=== PATIENT | female | born 1990 | race Caucasian/White ===

== ENCOUNTER 2019-02-01 18:52 | Inpatient (IN) | payer BC ==
[~2019-02-01] VITALS: Ht 157.5 cm; Wt 91.4 kg
[2019-02-01] MEDS ORDERED: LACTATED RINGER'S 1,000 ML IV PRN (19:35)
[2019-02-01 20:00] VITALS: Ht 157.5 cm; Wt 91.4 kg
[2019-02-01] MEDS ORDERED: IBUPROFEN 600 MG TAB PO PRN (20:00)
[2019-02-01] MEDS ORDERED: METHYLERGONOVINE 0.2 MG INJ IM PRN (20:00)
[2019-02-01] MEDS ORDERED: LIDOCAINE 1% (MPF) 30 ML INJ INJ PRN (20:00)
[2019-02-01] MEDS ORDERED: OXYTOCIN 30 UNITS/LR 500 ML IV SCH ×3 (20:00)
[2019-02-01] MEDS ORDERED: OXYTOCIN 30 UNITS/LR 500 ML IV PRN (20:00)
[2019-02-01] MEDS ORDERED: MISOPROSTOL 200 MCG TAB PR PRN (20:00)
[2019-02-01] MEDS ORDERED: BUTORPHANOL 2 MG INJ IV PRN (20:00)
[2019-02-01] MEDS ORDERED: CARBOPROST 250 MCG INJ IM PRN (20:00)
[2019-02-01] MEDS: LACTATED RINGER'S 1,000 ML IV SCH ×2 (20:54→21:48)
[2019-02-02] MEDS ORDERED: LACTATED RINGER'S 1,000 ML IV* SCH (06:08)
[2019-02-02] MEDS: LACTATED RINGER'S 1,000 ML IV* SCH ×2 (06:14→14:14)
[2019-02-02] MEDS ORDERED: OXYTOCIN 30 UNITS/LR 500 ML IV SCH (06:14)
[2019-02-02 06:30] VITALS: BP 125/71; PULSE 72; RESP 18
[2019-02-02] MEDS ORDERED: ONDANSETRON 4 MG INJ IV PRN ×2 (06:30)
[2019-02-02] MEDS ORDERED: ACETAMINOPHEN 325 MG TAB PO PRN ×2 (06:30)
[2019-02-02] MEDS ORDERED: OXYTOCIN 30 UNITS/LR 500 ML IV PRN ×2 (06:30)
[2019-02-02] MEDS ORDERED: DIPHENHYDRAMINE 25 MG CAP PO PRN ×2 (06:30)
[2019-02-02] MEDS ORDERED: MISOPROSTOL 200 MCG TAB PR PRN ×2 (06:30)
[2019-02-02] MEDS ORDERED: MAGNESIUM HYDROXIDE 30ML CUP PO PRN ×2 (06:30)
[2019-02-02] MEDS ORDERED: BENZOCAINE 20% 56 ML SPRAY TOP PRN ×2 (06:30)
[2019-02-02] MEDS ORDERED: CEFAZOLIN 1 GM/50 ML (PMX) 50 ML IVPB ONE (06:30)
[2019-02-02] MEDS ORDERED: NA PHOSPHATE/BIPHOS 133 ML ENEMA PR PRN ×2 (06:30)
[2019-02-02] MEDS ORDERED: ZOLPIDEM 5 MG TAB PO PRN ×2 (06:30)
[2019-02-02] MEDS ORDERED: METHYLERGONOVINE 0.2 MG TAB PO PRN ×2 (06:30)
[2019-02-02] MEDS ORDERED: HYDROCODONE/APAP (5/325) TAB PO PRN ×3 (06:30)
[2019-02-02] MEDS ORDERED: WITCH HAZEL/GLYCERIN PAD PR PRN ×2 (06:30)
[2019-02-02] MEDS ORDERED: CARBOPROST 250 MCG INJ IM PRN ×2 (06:30)
[2019-02-02] MEDS ORDERED: METHYLERGONOVINE 0.2 MG INJ IM PRN ×2 (06:30)
[2019-02-02] MEDS ORDERED: LANOLIN HPA 1 PKT TOP PRN ×2 (06:30)
[2019-02-02 08:00] VITALS: BP 118/82; PULSE 74; RESP 18
[2019-02-02] MEDS ORDERED: SENNA/DOCUSATE NA (8.6MG/50MG) TAB PO SCH (09:00)
[2019-02-02] MEDS: IBUPROFEN 600 MG TAB PO PRN ×3 (11:25→23:43)
[2019-02-02] MEDS: SENNA/DOCUSATE NA (8.6MG/50MG) TAB PO SCH ×2 (11:25→21:45)
[2019-02-02] MEDS ORDERED: IBUPROFEN 600 MG TAB PO SCH (12:00)
[2019-02-02] MEDS ORDERED: AMPICILLIN 2 GM/NS (PMX) 100 ML IV SCH (12:00)
[2019-02-02 16:00] VITALS: BP 103/66; PULSE 86; RESP 18
[2019-02-02 19:35] VITALS: BP 108/66; PULSE 88; RESP 18
[2019-02-03 04:30] VITALS: BP 124/71; PULSE 80; RESP 18
[2019-02-03] MEDS: IBUPROFEN 600 MG TAB PO PRN ×3 (05:39→23:33)
[2019-02-03 08:30] VITALS: BP 101/63; PULSE 70; RESP 18
[2019-02-03] MEDS: SENNA/DOCUSATE NA (8.6MG/50MG) TAB PO SCH ×2 (09:41→21:00)
[2019-02-03 15:45] VITALS: BP 111/64; PULSE 82; RESP 20
--- NOTE | 2019-02-03 15:49 | PN ---
Date/Time of Note Date/Time of Note DATE: 02/03/19 TIME: 15:48 Assessment/Plan VTE Prophylaxis Risk score (from Ns)>0 risk: 1 SCD applied (from Ns): No SCD contraindicated: low risk/ambulating Pharmacological prophylaxis: NA/contraindicated Pharm contraindication: low risk/ambulating Lines/Catheters IV C[facility]ter Type (from [facility] Peripheral IV Assessment/Plan Assessment/Plan POST DAY 1 HOME TOMORROW RETURN TO CLINIC IN 2 WEEKS CONTINUE WITH VITAMINS OD AND FERROUS SULFATE PO TID DIET ADVISED COUNSELED INSTRUCTED CALL OFFICE IF THERE IS ANY PROBLEMS OR CONCERN Result Diagram: 02/03/19 1311 Results 24hrs Laboratory Tests Test 02/03/19 06:25 02/03/19 08:13 02/03/19 13:11 Lab Scanned Report REFERENCE LAB White Blood Count 8.7 9.5 Red Blood Count 3.78 L 3.95 L Hemoglobin 11.2 L 11.7 L Hematocrit 34.2 L 35.8 L Mean Corpuscular Volume 90.5 90.6 Mean Corpuscular Hemoglobin 29.6 29.6 Mean Corpuscular 32.7 32.7 Hemoglobin Concent Red Cell Distribution Width 14.9 H 14.9 H Platelet Count 173 191 Mean Platelet Volume 11.1 H 10.5 H Immature Granulocytes % 0.800 H 1.100 H Neutrophils % 75.5 79.6 H Lymphocytes % 16.2 12.8 L Monocytes % 6.4 5.5 Eosinophils % 0.8 0.7 Basophils % 0.3 0.3 Nucleated Red Blood Cells % 0.0 0.0 Immature Granulocytes # 0.070 H 0.100 H Neutrophils # 6.6 7.6 H Lymphocytes # 1.4 1.2 Monocytes # 0.6 0.5 Eosinophils # 0.1 0.1 Basophils # 0.0 0.0 Nucleated Red Blood Cells # 0.0 0.0 Subjective 24 Hr Interval Summary Free Text/Dictation FEELS GOOD, GOOD URINE OUTPUT, GOOD BOWEL MOVEMENT Exam/Review of Systems Exam Vitals Vital Signs Date Temp Pulse Resp B/P (MAP) Pulse Ox O2 O2 Flow FiO2 Time Delivery Rate 02/03/19 99.3 70 18 101/63 Room Air 08:30 (76) Intake and Output 02/02/19 02/02/19 02/03/19 1515:00 23:00 07:00 IntakeIntake Total 500 ml OutputOutput Total 600 ml BalanceBalance -100 ml Exam VITAL SIGNS STABLE: YES AFEBRILE: YES BREAST NOT ENGORGED, NON-TENDER, NO APPRECIABLE MASS: YES LUNGS CLEAR, NO RALES, WHEEZES, RHONCHI: YES SINUS RHYTHM WITHOUT MURMUR: YES ABDOMEN: NON-TENDER FUNDUS: BELOW UMBILICUS BOWEL SOUNDS: PRESENT UTERUS: FIRM INTACT PERINEUM: YES LOCHIA: LIGHT DEEP TENDON REFLEXES: 0 EXTREMITIES: NO CALF TENDERNESS EDEMA SCALE: NONE Results Results 24hrs Laboratory Tests Test 02/03/19 06:25 02/03/19 08:13 02/03/19 13:11 Lab Scanned Report REFERENCE LAB White Blood Count 8.7 9.5 Red Blood Count 3.78 L 3.95 L Hemoglobin 11.2 L 11.7 L Hematocrit 34.2 L 35.8 L Mean Corpuscular Volume 90.5 90.6 Mean Corpuscular Hemoglobin 29.6 29.6 Mean Corpuscular 32.7 32.7 Hemoglobin Concent Red Cell Distribution Width 14.9 H 14.9 H Platelet Count 173 191 Mean Platelet Volume 11.1 H 10.5 H Immature Granulocytes % 0.800 H 1.100 H Neutrophils % 75.5 79.6 H Lymphocytes % 16.2 12.8 L Monocytes % 6.4 5.5 Eosinophils % 0.8 0.7 Basophils % 0.3 0.3 Nucleated Red Blood Cells % 0.0 0.0 Immature Granulocytes # 0.070 H 0.100 H Neutrophils # 6.6 7.6 H Lymphocytes # 1.4 1.2 Monocytes # 0.6 0.5 Eosinophils # 0.1 0.1 Basophils # 0.0 0.0 Nucleated Red Blood Cells # 0.0 0.0 Medications Medication Current Medications Acetaminophen/ Hydrocodone Bitart (Maud (5/325)) 2 tab Q4H PRN PO .PAIN 6-10; Start 02/02/19 at 06:30 Measles/Mumps/ Rubella Vaccine Live (Mmr Ii Vaccine) 0.5 ml ONCE ONCE SC* ; Start 02/04/19 at 09:00; Stop 02/04/19 at 09:01 Acetaminophen (Tylenol Tab) 650 mg Q4H PRN PO .TEMP; Start 02/02/19 at 06:30 Oxytocin/Lactated Ringer's 500 ml @ 0 mls/hr ONCE PRN IV .VAGINAL BLEEDING; Start 02/02/19 at 06:30 Methylergonovine Maleate (Methergine) 0.2 mg ONCE PRN IM .VAGINAL BLEEDING; Start 02/02/19 at 06:30 Lactated Ringer's 1,000 ml @ 125 mls/hr Q8H IV* ; Start 02/02/19 at 06:14 Methylergonovine Maleate (Methergine) 0.2 mg Q6H PRN PO .VAGINAL BLEED; Start 02/02/19 at 06:30 Ibuprofen (Motrin) 600 mg Q6 PRN PO MILD PAIN LEVEL 1-3 Last administered on 02/03/19at 05:39; Admin Dose 600 MG; Start 02/02/19 at 06:30 Acetaminophen/ Hydrocodone Bitart (Maud (5/325)) 1 tab Q4H PRN PO MODERATE PAIN LEVEL 4-6; Start 02/02/19 at 06:30 Ondansetron HCl (Zofran Inj) 4 mg Q6H PRN IV NAUSEA/VOMITING; Start 02/02/19 at 06:30 Diphenhydramine HCl (Benadryl) 25 mg Q6H PRN PO .PRUTITUS; Start 02/02/19 at 06:30 Zolpidem Tartrate (Ambien) 5 mg QHS PRN PO .INSOMNIA; Start 02/02/19 at 06:30 Senna/Docusate Sodium (Senokot-S) 1 tab BID PO Last administered on 02/03/19at 09:41; Admin Dose 1 TAB; Start 02/02/19 at 09:00 Magnesium Hydroxide (Milk Of Mag) 30 ml Q12H PRN PO .CONSTIPATION; Start 02/02/19 at 06:30 Sodium Biphosphate/ Sodium Phosphate (Fleet Enema) 133 ml DAILY PRN [place] .CONSTIPATION; Start 02/02/19 at 06:30 Witch Kenzie/ Glycerin (Tucks Pads) 1 pad BEDSIDE MEDICATION PRN [place] .HEMORRHOID/EPISIOTOMY PAIN Last administered on 02/02/19at 11:26; Admin Dose 40 PAD; Start 02/02/19 at 06:30 Benzocaine (Dermoplast Donie) 1 spray BEDSIDE MEDICATION PRN TOP .HEMMORHOID/EPISIOTOMY PAIN Last administered on 02/02/19at 11:26; Admin Dose 56 SPRAY; Start 02/02/19 at 06:30 Lanolin (Lanolin Hpa) 1 applic BEDSIDE MEDICATION PRN TOP .NIPPLES Last administered on 02/02/19at 11:26; Admin Dose 1 APPLIC; Start 02/02/19 at 06:30 Oxytocin/Lactated Ringer's 500 ml @ 0 mls/hr ONCE PRN IV .VAGINAL BLEEDING; Start 02/02/19 at 06:30 Carboprost Tromethamine (Hemabate) 250 mcg ONCE PRN IM .VAGINAL BLEEDING; Start 02/02/19 at 06:30 Misoprostol (Cytotec) 1,000 mcg ONCE PRN [place] .VAGINAL BLEEDING; Start 02/02/19 at 06:30 ANGELICA AMATO MD Feb 03, 2019 15:49
[2019-02-03 19:45] VITALS: BP 105/56; PULSE 82; RESP 18
[2019-02-04 04:06] VITALS: BP 108/61; PULSE 77; RESP 18
[2019-02-04] MEDS: IBUPROFEN 600 MG TAB PO PRN ×2 (05:36→13:41)
[2019-02-04 07:50] VITALS: BP 106/52; PULSE 86; RESP 18
[2019-02-04] MEDS ORDERED: MEASLES,MUMPS,RUBELLA VACCINE INJ SC* ONE (09:00)
[2019-02-04] MEDS ORDERED: DIPHTH/TET/ACEL PERTUSS (ADULT) 0.5 ML VIAL IM* ONE ×2 (09:00→15:30)
[2019-02-04] MEDS: SENNA/DOCUSATE NA (8.6MG/50MG) TAB PO SCH (09:00)
[2019-02-04] MEDS ORDERED: VARICELLA VACCINE LIVE/PF 1,350 UNIT/0.5 ML ML SC* ONE (09:00)
--- NOTE | 2019-02-04 11:47 | PREOPHP ---
DATE OF ADMISSION: 02/01/2019 HISTORY OF PRESENT ILLNESS: This is a 28-year-old lady, 4, para 3 and her EDC 02/03/2019, at 39 and 5/7 weeks, admitted to labor and delivery area in early labor. She had care in [facility] office and the care was uneventful. PAST PERSONAL HISTORY: She started to have contractions about a few hours prior to admission and got worse up to the time of admission. PAST PERSONAL HISTORY: No history of diabetes, TB, asthma. ALLERGIES: No allergies. SOCIAL HISTORY: Patient does not smoke. She does not drink. MEDICATIONS: She does not take any drugs except her iron and vitamins. GYNECOLOGIC HISTORY: She had menarche at the age of 14, every 28 days interval, 3 to 4 days duration , and moderate in amount. FAMILY HISTORY: Noncontributory. She is 4, para 3. Her first delivery was in 2008, 2nd in 2010, 3rd in 2012. All normal deli veries. REVIEW OF SYSTEMS: CARDIOVASCULAR: No chest pains. RESPIRATORY: No cough. GASTROINTESTINAL: No diarrhea, no vomiting. GENITOURINARY: No dysuria. PHYSICAL EXAMINATION: GENERAL: Reveals a conscious, coherent lady in no acute distress. VITAL SIGNS: Her blood pressure 120/80, pulse rate 80 per minute, respirations 16 per minute. BREASTS, HEART AND LUNGS: Within normal limits. ABDOMEN: Soft. No organomegaly. PELVIC: Done by me at 10:44 p.m. 02/01/2019 revealed the cervix to be 4 cm dilated, 100% effaced, st ation 0 in cephalic presentation with the bag of water intact. EXTREMITIES: No pedal edema. ADMITTING DIAGNOSIS: A 39 and 5/7 weeks intrauterine in labor. The plans of delivery were explained to the patient as to go for vaginal delivery. The risks, benefits, and alternatives to va ginal delivery was explained to the patient and the alternative of explained the risks of C -section explained. She wanted to go for vaginal delivery. She had artificial rupture of membranes. scalp electrode and IPC was inserted. Clear fluid was noted. She was continued on Pitocin a ugmentation. The patient did not receive any pain medication as she refused to take any and she prog ressed well. Dictated By: ANGELICA RODRIGUEZ/NTS Conf#: [id number] DID#: [id number] CC: ANGELICA AMATO MD;*[facility]*
--- NOTE | 2019-02-04 13:49 | PN ---
DATE: 02/02/2019 This is a 28-year-old lady, 4, para 3, EDC 02/03/2019 at 39 and 5/7 weeks, admitted in labor. HISTORY OF PRESENT ILLNESS: See dictated history and physical. PHYSICAL EXAMINATION: See dictated history and physical. ADMITTING DIAGNOSIS: A 39 and 5/7 weeks' intrauterine in labor. PLANS OF DELIVERY AND PROGRESS OF LABOR: See dictated history and physical. The patient progressed well, had a normal spontaneous vaginal delivery and delivered a healthy baby girl at 5:02 a.m. 2018, 8 and 9, weighing 8 pounds and 9 ounces, 3880 grams over a first-degree midline perineal tear. The placenta was delivered spontaneously and complete. Manual exploration of the uterus revea led no membranes left behind. Cervix, vagina and vulva were free of hematoma. The position wa s direct occiput anterior. There were 3 vessels in the cord. The placenta was normal with a small s hiny side and a pinkish maternal side. First first-degree midline perineal tear was repaired w ith continuous suture with 2-0 chromic with 1% Xylocaine. The patient tolerated the delivery well. Estimated blood loss was about 300. Vital signs were stable during and after the delivery. Dictated By: ANGELICA RODRIGUEZ/[place] Conf#: [id number] DID#: [id number]
--- NOTE | 2019-02-05 16:52 | DELSUM ---
Delivery Summary A-C Datetime Report Generated by CPN: 02/05/2019 16:52 DELIVERY PERSONNEL [employer] Supervisor: Tersigni, Negra MATERNAL INFORMATION Delivery Anesthesia: None Medications in Delivery: LR with 30 units of pitocin, methergine 0.2 mg Delivery QBL (ml): 400 Placenta Cultured: No Maternal Complications: None LABOR SUMMARY EDC: 02/03/2019 00:00 No. Babies in Womb: 1 Attempted: No Labor Anesthesia: None LABOR INFORMATION Reason for Induction: Other Onset of Labor: 02/01/2019 21:01 Complete Dilatation: 02/02/2019 04:56 Oxytocin: Induction Group B Beta Strep: Negative Antibiotics # of Doses: 0 Steroids Given: None Reason Steroids Not Administered: Not Applicable MEMBRANES Membranes Rupture Method: Artificial Rupture of Membranes: 02/01/2019 22:45 Length of Rupture (hr): 6.28 Amniotic Fluid Color: Light Meconium Amniotic Fluid Amount: Moderate Amniotic Fluid Odor: None STAGES OF LABOR Stage 1 hr: 7 Stage 1 min: 55 Stage 2 hr: 0 Stage 2 min: 6 Stage 3 hr: 0 Stage 3 min: 3 Total Time in Labor hr: 8 Total Time in Labor min: 4 VAGINAL DELIVERY Episiotomy: None Laceration Extension: First Degree Laceration Type: Perineal Laceration Repair: Yes Initial Vag Sponge Count: 10 Final Vag Sponge Count: 10 Initial Vag Sharps Count: 2 Final Vag Sharps Count: 2 Sponge Count Correct: Yes; Vaginal Sweep Performed Sharps Count Correct: Yes BABY A INFORMATION Infant Delivery Date/Time: 02/02/2019 05:02 Method of Delivery: Vaginal Born in Route : No : N/A Forceps: N/A Vacuum Extraction: N/A Shoulder Dystocia : No SHOULDER DYSTOCIA BABY A Infant Delivery Date/Time: 02/02/2019 05:02 PRESENTATION/POSITION BABY A Presentation: Cephalic Cephalic Presentation: Vertex Vertex Position: Left Occipital Anterior Breech Presentation: N/A PLACENTA INFORMATION BABY A Placenta Delivery Time : 02/02/2019 05:05 Placenta Method of Delivery: Spontaneous Placenta Status: Delivered SCORES BABY A Heart Rate 1 min: >100 bpm Resp Effort 1 min: Good Cry Reflex Irritability 1 min: Cough/Sneeze/Pulls Away Muscle Tone 1 min: Active Motion Color 1 min: Blue/Pale Resuscitation Effort 1 min: Tactile Stimulation SCORE 1 MIN: 8 Heart Rate 5 min: >100 bpm Resp Effort 5 min: Good Cry Reflex Irritability 5 min: Cough/Sneeze/Pulls Away Muscle Tone 5 min: Active Motion Color 5 min: Body [place], Extremit Blue Resuscitation Effort 5 min: Tactile Stimulation SCORE 5 MIN: 9 INFANT INFORMATION BABY A Gestational Age at Delivery: 39.6 Gestational Status: Full Term- 39- 40.6 Weeks Outcome : Liveborn Infant Condition : Stable Infant Sex: Female IDENTIFICATION/MEDS BABY A ID Band Number: [id number] ID Band Location: Right Leg; Left Arm Sensor Applied: Yes Sensor Number: [id number] Sensor Location : Cord Clamp Vitamin K Given : Not Given Erythromycin Given: Not Given WEIGHT/LENGTH BABY A Infant Birthweight (gm): 3880 Weight (lb): 8 Weight (oz): 9 Infant Length (in): 20.00 Length (cm): 50.80 CORD INFORMATION BABY A No. Cord Vessels: 3 Nuchal Cord : Around Neck x1, Loose Cord Blood Taken: Yes Infant Suction: Mouth; Nose ASSESSMENT BABY A Complications: None Physical Findings at Delivery: Molding of the Head; Within Normal Limits Respirations: Appears Normal Beam Racker/ALS Called : No Infant Care By: Ricky OSBORNE Transferred To: Remains with Mother
== END 2019-02-04 16:51 | disposition home or self-care (01) | DRG 807 ==
LOC: L-D 18:52 → PP1 02-02 06:23
PROVIDERS: ADMIT Obstetrics & Gynecology; ATTEND Obstetrics & Gynecology
PROC: 10E0XZZ Delivery of Products of Conception, External Approach (ICD-10-PCS; principal; 2019-02-02)
PROC: 0HQ9XZZ Repair Perineum Skin, External Approach (ICD-10-PCS; 2019-02-02)
PROC: 3E033VJ Introduction of Other Hormone into Peripheral Vein, Percutaneous Approach (ICD-10-PCS; 2019-02-02)
DX: O70.0 First degree perineal laceration during delivery (principal); Z37.0 Single live birth; Z3A.39 39 weeks gestation of pregnancy
CPT/HCPCS: 85025; 85610; 85730; 86592; 86850; 86900; 86901; 90715; J0595; J2210; J2590; J7120